=== PATIENT | female | born 1990 | race Caucasian/White ===

== ENCOUNTER 2021-10-16 09:23 | Emergency (ER) | payer BC, SELFPAY ==
[2021-10-16 09:24] VITALS: BP 157/76; PULSE 80; RESP 16; TEMP 36.2; O2SAT 100; BMI 44.4
--- NOTE | 2021-10-16 10:07 | ED.VIS.FEGU ---
HPI HPI - Female History of Present Illness Chief Complaint: Vag Bleeding Informant: patient Pain Pain: Negative for Pelvic Pain, Vulvar Pain and Vaginal Pain Bleeding Issue: Positive for Vaginal bleeding and Passing clots; Negative for Passing tissue Onset: Today and Yesterday Context: Gradual Onset Timing: Continuous Current Severity: Heavy Maximum Severity: Heavy Narrative Narrative: 31-year-old female states that she is having a very heavy menstrual period. States [place] last 2 days with large clots. At times feels mildly lightheaded. She has no bleeding from. She is on no blood thinners. Does not believe she is . She has had heavy menstrual cycles for years. She denies any significant pain. No discharge. No fever. Prior similar symptoms: Yes Recent Illness/Hospitalization: No PFSH PFSH Medical History Family history of PCOS PCOS (polycystic ovarian syndrome) Allergy/AdvReac Type Severity Reaction Status Date / Time nickel AdvReac Itching Verified 10/16/21 09:24 Social History Smoking Status: Never smoker ROS ROS ED ROS Narrative Denies. Review of Systems ROS Unobtainable: Denies due to encephalopathy Constitutional Constitutional ED: Denies fever(s) Eyes Eyes: Denies change in vision ENT ENT ED: Denies ear pain Cardiovascular Cardiovascular: Denies chest pain Respiratory/Chest Respiratory/Chest: Denies dyspnea Gastrointestinal Gastrointestinal: Denies abdominal pain, diarrhea, nausea or vomiting Genitourinary Genitourinary ED: Denies dysuria Musculoskeletal Musculoskeletal: Denies myalgias Integumentary Denies rash Neurologic Neurologic: Denies headache(s) Psychiatric Psychiatric: Denies depression Endocrine Endocrinology: Denies polyuria Hematologic/Lymphatic Hematologic/Lymphatic: Denies easy bruising Allergic/Immunologic Allergic/Immunologic ED: Denies urticaria EXAM Physical Exam Narrative Exam Narrative: 31-year-old female no acute distress vital signs stable afebrile. Blood pressure 137/76. Pulse 80. HEENT exam unremarkable. Lungs clear to auscultation. Heart regular rhythm rate about 80 no murmur. Abdomen soft nontender normal bowel sounds no peritoneal signs. Moving all 4 extremities. Nontender no edema. Back nontender. Neurologically awake and alert. Const Vital Signs: 10/16/21 09:24 Temperature 97.1 F L Temperature Source Temporal Pulse Rate 80 Respiratory Rate 16 Blood Pressure 157/76 H Blood Pressure Mean 103 Pulse Ox 100 Oxygen Delivery Method Room Air Positive well nourished, well developed and obese; Negative for cachectic, contractures or unkempt General Appearance ED: well developed and NAD; Negative for unkempt, cachectic, contractures or pallor Nutritional Appearance: obese; Negative for cachectic HEENT Reports moist mucous membranes Negative for trauma or tenderness Eyes PERRL and EOMs intact bilaterally General Eye ED: Negative for pale conjunctiva or scleral icterus Neck no lymphadenopathy, supple and no JVD Thyroid: Negative for tender Chest Wall inspection of chest normal and palpation of chest normal Resp normal respiratory effort and clear to auscultation bilaterally Effort and Inspection: Negative for pain with movement Auscultation: Negative for rales, rhonchi or wheezes Cardio regular rate, regular rhythm, S1 normal heart sound, no murmurs and no JVD Rhythm: Negative for abnormal rhythm GI normal to inspection, nondistended, normoactive bowel sounds, soft to palpation, non-tender, non-distended and no masses Auscultation: normoactive bowel sounds Palpation: Negative for tender, guarding or rigid Back/Spine no CVA tenderness General Back: Negative for CVA tenderness Extremity normal to inspection and full ROM General Extremety ED: Negative for edema or tenderness General Extremity: Negative for edema Neuro oriented x3 Sensorium / Orientation: alert, oriented to person, oriented to place and oriented to time; Negative for confused, lethargic or stuporous Psych mental status grossly normal Appearance: Negative for unkempt Skin no rashes or lesions noted and no wounds General Skin Exam: Negative for jaundice or pallor MDM MDM MDM Narrative Medical decision making narrative: 31-year-old female with heavy menstrual period. Pelvic and labs are being obtained. Repeat exam patient is doing well at 10:50 AM. She denies discussed her test results. She starts a new job and new insurance will kick in in November that is when she will follow up because that is when insurance kicks in. She knows return if bleeding continues and she is feeling worse. She deferred the pelvic exam at this time. Lab Data Attestation: I reviewed the patient's lab results. Lab results narrative: CBC unremarkable white count 9.7. Hemoglobin 13.3. Hematocrit 39. Platelets 340,000. Serum test negative. Labs: Laboratory Results - last 24 hr 10/16/21 10/16/21 10:14 10:14 WBC 9.7 RBC 4.52 Hgb 13.3 Hct 39.0 MCV 86.3 MCH 29.4 MCHC 34.1 RDW Std Deviation 40.3 RDW Coeff of Yobany 12.9 Plt Count 340 MPV 8.9 Immature Gran % (Auto) 0.400 Neut % (Auto) 65.1 Lymph % (Auto) 29.5 Armstrong % (Auto) 4.0 Eos % (Auto) 0.7 Baso % (Auto) 0.3 Absolute Neuts (auto) 6.3 Absolute Lymphs (auto) 2.87 Nucleated RBC % 0 Serum , Qual NEGATIVE Discharge Plan Triage Chief Complaint: Vag Bleeding ED Provider: Steve Coelho Dx/Rx/DC Orders Clinical Impression: Menorrhagia, History of PCOS Instructions: ED Heavy Menstrual Bleeding Primary Care Provider: Care Physician,No Primary Referrals: Jesenia Degroot MD [STAFF PHYSICIAN] - As soon as possible Care Physician,No Primary [Primary Care Provider] - Activity Restrictions/Additional Instructions: Set up appointment with an GIS PROFESSOR as soon as possible. Plenty of fluids and rest. Tylenol and Motrin for cramping. Your blood counts today were normal. Disposition Disposition: Home, Self Care
[2021-10-16] MEDS: 0.9% Normal Saline 1,000 ML 1000 ML IV (10:21)
[2021-10-16 10:32] LABS: Absolute Lymphocyte Count 2.87 X10^3/uL (0.83-4.51); Absolute Neutrophil Count 6.3 X10^3/uL (2.0-7.7); Basophil# 0.03 X10^3/uL; Basophil% 0.3 % (0-1); Eosinophil# 0.07 X10^3/uL; Eosinophils% 0.7 % (0-5); Hemoglobin 13.3 g/dL (12.0-15.0); Lymphocyte # 2.87 X10^3/ul (0.83-4.51); Lymphocyte % 29.5 % (19-41); Mean Corp Hgb Conc 34.1 g/dL (32-36); Mean Corpuscular Hgb 29.4 pg (27.0-32.0); Mean Corpuscular Volume 86.3 fL (81-99); Mean Platelet Vol. 8.9 fl (6.2-12.0); Monocyte# 0.39 X10^3/uL; NRBC Flagged by Analyzer 0 % (0-5); Neutrophil # 6.32 X10^3/uL (2.7-7.7); Neutrophil % 65.1 % (47-70); Platelet Count 340 K/mm3 (150-450); RBC Distribution Width CV 12.9 % (11.6-14.6); RBC Distribution Width SD 40.3 fl (35.1-43.9); Red Blood Count 4.52 M/mm3 (4.2-5.4); White Blood Count 9.7 K/mm3 (4.4-11.0)
[2021-10-16 10:42] LABS: Internal QC Validated? YES +Cl - CLEAR BKGD; Pregnancy, Serum, hCG Quali. NEGATIVE Negative
== END 2021-10-16 11:28 | disposition home or self-care (01) ==
PROVIDERS: Emergency Provider Emergency Medicine
DX: N92.0 Excessive and frequent menstruation with regular cycle (principal); E28.2 Polycystic ovarian syndrome
CPT/HCPCS: 84703; 85025; 96360; 99283